=== PATIENT | female | born 1965 | race Caucasian/White ===

== ENCOUNTER 2019-03-11 16:31 | Emergency (ER) | payer MEDICAID ==
[~2019-03-11] VITALS: Ht 147.3 cm; Wt 75.8 kg
[2019-03-11 16:42] VITALS: Ht 147.3 cm; Wt 75.8 kg
[2019-03-11 17:22] LABS: CALCIUM 9.5 mg/dL (8.5-10.1); CARBON DIOXIDE 27.3 mmol/L (21-32); CHLORIDE SERUM 105 mmol/L (98-107); CREATININE SERUM 0.7 mg/dL (0.6-1.0); GFR1 > 60 mL/min; GLUCOSE SERUM 101 mg/dL (74-106); SODIUM SERUM 141 mmol/L (136-145)
[2019-03-11 19:36] VITALS: BP 120/73
== END 2019-03-11 19:36 | disposition home or self-care (01) ==
LOC: ED 16:31
PROVIDERS: Emergency Medicine
DX: R20.2 Paresthesia of skin (principal); N39.0 Urinary tract infection, site not specified; Z86.2 Personal history of diseases of the blood and blood-forming organs and certain disorders involving the immune mechanism
CPT/HCPCS: 36415